=== PATIENT | female | born 1980 | race Caucasian/White ===

== ENCOUNTER 2016-10-20 18:18 | Emergency (ER) | payer OTHER ==
[2016-10-20] MEDS ORDERED: IBUPROFEN 800 MG TABLET PO STA (18:39)
--- NOTE | 2016-10-20 18:42 | ED Physician Documentation ---
PD HPI LOWER EXT INJURY - Stated complaint Stated Complaint: LT KNEE PX - Chief complaint Chief Complaint: Ext Problem - History obtained from History obtained from: Patient - History of Present Illness PD HPI LOW EXT INJURY LOCATION: Left, Knee Type of injury: Other (states "tweaked" her knee running last night.) Where injury occurred: Street Timing - onset: Last night Timing - duration: Hours (16) Timing - details: Gradual onset Pain level max: 8 Pain level now: 6 Improved by: Rest, Ice Worsened by: Moving, Palpating, Other (ambulating) Associated symptoms: No: Weakness, Numbness, Tingling, Swelling Contributing factors: No: Anticoagulated, Prior ortho surgery Similar symptoms before: Has not had sx before Recently seen: Not recently seen Review of Systems Constitutional: denies: Fever, Chills Cardiac: denies: Chest pain / pressure Respiratory: denies: Cough GI: denies: Abdominal Pain, Nausea, Vomiting, Diarrhea : denies: Now EGA Skin: denies: Rash Musculoskeletal: denies: Neck pain, Back pain Neurologic: denies: Focal weakness, Numbness, Headache PD PAST MEDICAL HISTORY - Past Medical History Past Medical History: No Cardiovascular: None Respiratory: None Neuro: None Endocrine/Autoimmune: None GI: None TERRAPIN FISHER: None : None HEENT: None Psych: None Musculoskeletal: None Derm: None - Past Surgical History General: Other HEENT: Tonsil/Adenoidectomy - Present Medications Home Medications: Ambulatory Orders Medication Instructions Recorded Confirmed Ibuprofen [Motrin] 800 mg PO Q8HR PRN 10/20/16 10/20/16 - Allergies Allergies/Adverse Reactions: Allergies Allergy/AdvReac Type Severity Reaction Status Date / Time No Known Drug Allergies Allergy Verified 10/20/16 18:28 - Social History Does the pt smoke?: No Smoking Status: Never smoker Does the pt drink ETOH?: No Does the pt have substance abuse?: No - Immunizations Immunizations are current?: Yes - POLST Patient has POLST: No PD ED PE NORMAL - Vitals Vital signs reviewed: Yes - General General: Alert and oriented X 3, No acute distress - Derm Derm: Warm and dry - Extremities Extremities: Other (L knee - ACL, MCL, PCL, LCL intact. TTP along lateral joint line. Pain with flexion of the knee. ) - Neuro Neuro: Alert and oriented X 3 - Psych Psych: Normal mood, Normal affect Results - Vitals Vitals: Vital Signs - 24 hr 10/20/16 10/20/16 18:23 19:45 Temperature 36.6 C Heart Rate 58 L 60 Respiratory 14 14 Rate Blood Pressure 105/66 110/68 O2 Saturation 98 99 Oxygen O2 Source Room air - Rads (name of study) L knee xray Radiology: Prelim report reviewed, EMP read contemporaneously, See rad report ( small joint effusion, o/w normal) PD MEDICAL DECISION MAKING - ED course Complexity details: re-evaluated patient, considered differential, d/w patient ED course: Patient is a 36-year-old female with a left knee injury. Concern for meniscus injury, but secondary to pain she is unable to fully flex the knee. Will place in a knee immobilizer and on crutches and have her reexamined by orthopedics for further evaluation. Patient counseled regarding signs and symptoms for which I believe and urgent re-evaluation would be necessary. Patient with good understanding of and agreement to plan and is comfortable going home at this time This document was made in part using voice recognition software. While efforts are made to proofread this document, sound alike and grammatical errors may occur. Departure - Departure Disposition: 01 Home, Self Care Clinical Impression: Left knee injury Qualifiers: Encounter type: initial encounter Qualified Code(s): S89.92XA - Unspecified injury of left lower leg, initial encounter Condition: Good Instructions: ED Meniscal Injury Knee Poss Follow-Up: Keturah Aj MD [Primary Care Provider] - 10/24/16 Comments: You can bear weight as tolerated. Return if you worsen. You need a repeat knee exam next week with your doctor. Wear the immobilizer as needed. Only use it for a few days. Discharge Date/Time: 10/20/16 19:58
[2016-10-20] MEDS ORDERED: IBUPROFEN 800 MG TABLET PO ONE (18:43)
--- NOTE | 2016-10-20 19:58 | XRAY Preliminary Report ---
Exam: XR Knee 4 View LT IMPRESSION: 1. Small knee joint effusion. 2. No evidence for acute fracture. [facility] SITE ID: [id number]
--- NOTE | 2016-10-20 20:00 | XRAY Report ---
EXAM: LEFT KNEE RADIOGRAPHY EXAM DATE: 10/20/2016 06:59 PM. CLINICAL HISTORY: Left knee injury while running yesterday. COMPARISON: None. TECHNIQUE: 4 views. FINDINGS: Bones: Normal. No fractures or bone lesions. Joints: Small knee joint effusion. No subluxation. No degenerative joint disease Soft Tissues: Normal. No soft tissue swelling. IMPRESSION: 1. Small knee joint effusion. 2. No evidence for acute fracture. [facility] Referring Provider Line: [phone] SITE ID: [id number]
[2016-10-20 20:15] VITALS: BP 110/68
== END 2016-10-20 19:58 | disposition home or self-care (01) ==
LOC: ED 18:18
DX: S89.92XA Unspecified injury of left lower leg, initial encounter (principal); X50.9XXA Other and unspecified overexertion or strenuous movements or postures, initial encounter; Y93.02 Activity, running; Y92.410 Unspecified street and highway as the place of occurrence of the external cause
CPT/HCPCS: 73564; 99283; A9270

== ENCOUNTER 2016-11-04 12:55 | Outpatient (CLI) | payer OTHER ==
--- NOTE | 2016-11-04 15:31 | MRI Report ---
EXAM: LEFT KNEE MRI WITHOUT CONTRAST EXAM DATE: 11/04/2016 01:30 PM. CLINICAL HISTORY: Lateral knee pain after running half marathon. COMPARISON: Radiographs 10/20/2016. TECHNIQUE: Multiplanar, multisequence T1-weighted and fluid-sensitive sequences of the knee without c ontrast. Other: None. FINDINGS: Cruciate ligaments: Anterior and posterior cruciate ligaments appear intact. Medial meniscus: Intact. No tear is identified. Lateral meniscus: Intact. No tear is identified. Collateral ligament: The medial and fibular collateral ligament appear intact. Bones and articular surfaces: Moderate cartilage thinning, fissuring and irregularity over the centra l and lateral aspect of the patella with prominent patchy subchondral marrow edema. No intra-articula r disk body. Medial and lateral compartments to Mr. No significant articular cartilage defects. Extensor mechanism: Focal edema within the lateral infrapatellar fat. The patellar tendon and quadric eps insertion appear intact. Mild lateral tracking of the patella. Miscellaneous: Small popliteal cyst. Trace amount of edema deep to the iliotibial band raising possib ility of mild IT band friction. IMPRESSION: 1. 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 2. Edema within the lateral infrapatellar fat suggesting some degree of fat pad impingement. Mild lat eral tracking of the patella. 3. Possible mild IT band friction. [facility] MUSCULOSKELETAL RADIOLOGY SECTION Referring Provider Line: [phone] SITE ID: [id number]
== END 2016-11-04 12:56 | disposition home or self-care (01) ==
LOC: DI 12:55
PROVIDERS: ATTEND General Practice
DX: M22.42 Chondromalacia patellae, left knee (principal)

== ENCOUNTER 2021-04-20 07:55 | Outpatient (CLI) | payer OTHER ==
--- NOTE | 2021-04-20 10:21 | MRI Report ---
PROCEDURE: Cervical Spine W/O INDICATIONS: CERVICALGIA TECHNIQUE: Noncontrast sagittal T1 spin echo and T2 fast spin echo, sagittal STIR, foraminal oblique sagittal T2 fast spin echo, and axial gradient echo or T2 fast spin echo through the cervical spine. COMPARISON: None. FINDINGS: Straightening of usual cervical lordosis. Otherwise normal alignment. Postsurgical changes related to C5 and C7 ACDF. There appears to be mature osseous fusion across the intervertebral disc spaces at t he operative levels. No suspicious bone marrow signal intensity. Normal morphology and signal intensi ty of the cervical cord. There is no syrinx. Prevertebral and paraspinous soft tissues are grossly no rmal in the absence of IV contrast. C2-C3: No spinal canal or neural foraminal stenosis. C3-C4: No spinal canal or neural foraminal stenosis. C4-C5: Facet and uncovertebral hypertrophy contribute to mild neural foraminal narrowing on the righ t. No neural foraminal narrowing on the left. No spinal canal stenosis. C5-C6: No spinal canal or neural foraminal stenosis. C6-C7: Facet and uncovertebral hypertrophy contribute to moderate neural foraminal narrowing on the left. No neural foraminal narrowing on the right. No spinal canal stenosis. C7-T1: No spinal canal or neural foraminal stenosis. IMPRESSION: Moderate neural foraminal narrowing on the left at C6-C7. Correlate for corresponding left C7 radicul ar symptoms. Reviewed by: Adiel Albright MD on 04/20/2021 10:20 AM PST Approved by: Adiel Albright MD on 04/20/2021 10:20 AM PST Station ID: [id number]
== END 2021-04-20 07:56 | disposition home or self-care (01) ==
LOC: DI 07:55
PROVIDERS: ATTEND Student in an Organized Health Care Education/Training Program
DX: M47.812 Spondylosis without myelopathy or radiculopathy, cervical region (principal)

== ENCOUNTER 2023-04-04 07:34 | Outpatient (CLI) | payer OTHER ==
[~2023-04-04 07:34] MED LIST: GADOTERATE MEGLUMINE 10 MMOL/20 ML VIAL ONE
--- NOTE | 2023-04-04 11:15 | MRI Report ---
PROCEDURE: BRAIN W/WO INDICATIONS: ABN BRAIN MR CONTRAST: CLARISCAN 13.6ML TECHNIQUE: Noncontrast axial T1 spin echo, axial T2 fast spin echo, sagittal and axial FLAIR, coronal T2 fast sp in echo, axial gradient echo, axial diffusion and ADC through the brain. After the administration of contrast, axial and coronal T1 spin echo with fat saturation through the brain. COMPARISON: 03/28/2022 FINDINGS: Image quality: Diagnostic, with note made of motion artifact. CSF spaces: Basal cisterns are patent. No extra-axial fluid collections. Ventricles are normal in size and shape. Brain: No midline shift. No intracranial bleeds or masses. No abnormal intracranial enhancement. There is cerebral volume loss for age. There is periventricular white matter chronic small vessel is chemic change. The brainstem appears normal. Diffusion-weighted images demonstrate no acute ischemi c insults. No chronic ischemic insults. Normal intravascular flow voids are present. Skull and face: Calvarial marrow is normal in signal. Orbits appear normal. Sinuses: Sinuses and mastoids appear clear. IMPRESSION: Brain MRI within normal limits. No masses or abnormal enhancement can be seen. No findings of acute or subacute infarction are seen. Reviewed by: Andi Wise MD on 04/04/2023 10:14 AM RITIKA Approved by: Andi Wise MD on 04/04/2023 10:14 AM RITIKA Station ID: [id number]
[2023-04-04] MEDS ORDERED: GADOTERATE MEGLUMINE 10 MMOL/20 ML VIAL IVP ONE (16:46)
== END 2023-04-04 07:35 | disposition home or self-care (01) ==
LOC: DI 07:34
DX: M50.10 Cervical disc disorder with radiculopathy, unspecified cervical region (principal)
CPT/HCPCS: 70553; A9575

== ENCOUNTER 2023-05-24 08:00 | Outpatient (CLI) | payer OTHER ==
[2023-05-24 12:01] LABS: BASOPHILS % (AUTO) 0.6 %; EOSINOPHILS # (AUTO) 0.1 10^3/uL (0.0-0.7); EOSINOPHILS % (AUTO) 2.2 %; HGB - HEMOGLOBIN 12.5 g/dL (12.0-16.0); LYMPHOCYTES # (AUTO) 2.1 10^3/uL (1.5-3.5); LYMPHOCYTES % (AUTO) 41.7 %; MEAN CORPUSCULAR HGB CONC 33.8 g/dL (32.0-36.0); MEAN CORPUSCULAR VOLUME 91.8 fL (81.0-99.0); MEAN PLATELET VOLUME 9.7 fL (7.9-10.8); MONOCYTES # (AUTO) 0.4 10^3/uL (0.0-1.0); MONOCYTES % (AUTO) 7.4 %; NEUTROPHILS # (AUTO) 2.4 10^3/uL (1.5-6.6); NEUTROPHILS % (AUTO) 47.9 %; PLT - PLATELET COUNT 293 10^3/uL (130-450); RED BLOOD COUNT 4.03 10^6/uL (4.20-5.40); RED CELL DISTRIBUTION WIDTH 12.4 % (12.0-15.0)
[2023-05-24 12:30] LABS: ALBUMIN 4.2 g/dL (3.2-5.5); ALBUMIN/GLOBULIN RATIO 1.8 (1.0-2.2); BILIRUBIN,TOTAL 0.7 mg/dL (0.2-1.0); CREATININE 0.7 mg/dL (0.6-1.3); POTASSIUM 3.5 mmol/L (3.5-4.5); TOTAL PROTEIN 6.5 g/dL (6.4-8.9)
[2023-05-24 18:19] LABS: GLUCOSE, URINE (UA) 100 mg/dL (NEGATIVE); KETONES,URINE (UA) 15 mg/dL (NEGATIVE); LEUKOCYTE ESTERASE, URINE NEGATIVE (NEGATIVE); NITRITE,URINE NEGATIVE (NEGATIVE); OCCULT BLOOD,URINE MODERATE (NEGATIVE); PROTEIN,URINE TRACE mg/dL (NEGATIVE); UROBILINOGEN,URINE 4 E.U./dL (NORMAL)
[2023-05-24 18:26] LABS: CLARITY,URINE CLOUDY (CLEAR)
[2023-05-24 18:27] LABS: BILIRUBIN,URINE NEGATIVE (NEGATIVE); ICTOTEST,URINE NEGATIVE
[2023-05-24 18:55] LABS: AMORPHOUS SEDIMENT,UR Marked /LPF; BACTERIA,URINE Few /HPF (None Seen); SQUAMOUS EPITHELIAL CELL,UR MOD Squamous (<= Few); WBC,URINE 0-3 /HPF (0-5)
== END 2023-05-24 23:59 | disposition home or self-care (01) ==
LOC: LAB.N 08:00
PROVIDERS: ATTEND Physician Assistant Medical
DX: R11.10 Vomiting, unspecified (principal); R31.9 Hematuria, unspecified
CPT/HCPCS: 36415; 80053; 81001; 82150; 83690; 85025; 87086